=== PATIENT | female | born 1965 | race Caucasian/White ===

== ENCOUNTER 2021-10-08 09:44 | Outpatient (CLI) | payer BC ==
[2021-10-08 10:54] LABS: Bilirubin Neg (Negative); Blood, Urine 25 (Negative); Clarity Clear (Clear); Glucose, Urine (Dipstick) Normal (Negative); Ketone, Urine Negative (Negative); Leukocyte Negative (Negative); Nitrite Negative (Negative); Protein, Urine (Dipstick) Negative (Neg-Trace); Specific Gravity, Urine 1.015 (1.002-1.036); Urobilinogen Normal mg/dL (Less than 2)
[2021-10-08 11:06] LABS: Hemoglobin 13.9 g/dL (12.0-15.5); Mean Corpuscular HGB CONC 31.7 g/dL (32.0-36.0); Mean Corpuscular Hemoglobin 27.5 pg (27.0-33.0); Mean Corpuscular Volume 86.8 fl (81.6-98.3); Mean Platelet Volume 9.9 fl (7.4-10.4); Platelet Count 337 10x3/uL (150-450); RBC Distribution Width 13.7 % (11.5-14.5); Red Blood Cell (RBC) Count 5.06 10x6/uL (3.90-5.03); White Blood Cell (WBC) Count 6.2 10x3/uL (3.5-10.5)
[2021-10-08 11:17] LABS: BHCG - Serum Negative (NEGATIVE); Pregs Control Background? CLEAR/WHITE (CLR/WHITE); Pregs Control Bar Appear? YES (CONTROL BAR)
[2021-10-08 16:46] LABS: SARS-CoV-2 PCR by NAA Not Detected (NotDetected)
== END 2021-10-08 09:45 | disposition home or self-care (01) ==
LOC: CSHLAB 09:44
PROVIDERS: ATTEND Obstetrics & Gynecology
DX: Z01.812 Encounter for preprocedural laboratory examination (principal); Z20.822 Contact with and (suspected) exposure to COVID-19; N39.3 Stress incontinence (female) (male)
CPT/HCPCS: 81003; 84703; 85027; U0003; U0005

== ENCOUNTER 2021-10-11 05:39 | Observation (INO) | payer BC ==
[2021-10-09 14:10] VITALS: BMI 30.4
[2021-10-11] MEDS ORDERED: Fentanyl 250 MCG/5 ML VIAL ONE (06:41)
[2021-10-11] MEDS ORDERED: PROPOFOL 20 ML ONE (06:41)
[2021-10-11] MEDS ORDERED: Rocuronium Bromide 10 MG/ML (10ML VIAL) ONE (06:42)
[2021-10-11] MEDS ORDERED: Glycopyrrolate 0.2 MG/ML 5 ML SYRINGE ONE (06:42)
[2021-10-11] MEDS ORDERED: Ketorolac Tromethamine 30 MG/ML VIAL ONE (06:42)
[2021-10-11] MEDS ORDERED: Dexamethasone 20 MG/5 ML VIAL ONE (06:42)
[2021-10-11] MEDS ORDERED: Midazolam HCl 2 mg/2 ml Vial ONE (06:42)
[2021-10-11] MEDS ORDERED: Lidocaine 1% PF 5 ML VIAL ONE (06:42)
[2021-10-11] MEDS ORDERED: Ondansetron PF 4 MG/2 ML Vial ONE ×2 (06:42→13:33)
[2021-10-11] MEDS ORDERED: Bupivacaine PF 0.5% 30 ML VIAL ONE (06:43)
[2021-10-11] MEDS ORDERED: Bupivacaine 0.25% HCL 30 ML VIAL ONE (06:43)
[2021-10-11] MEDS ORDERED: EPINEPHrine 1 MG/ML AMP ONE (06:43)
[2021-10-11] MEDS ORDERED: Lidocaine 1% MPF 2 ML VIAL ONE (06:46)
[2021-10-11] MEDS ORDERED: ceFAZolin 2 GM/Dextrose 50 ML IVPB ONE (06:56)
[2021-10-11] MEDS ORDERED: Fentanyl 100 MCG/2 ML VIAL ONE (10:35)
[2021-10-11] MEDS ORDERED: HYDROcodone/Acetaminophen 10/325 mg Tablet ONE (12:12)
[2021-10-11] MEDS ORDERED: Morphine 2 MG/ML VIAL SLOW IVP PRN (13:57)
[2021-10-11] MEDS ORDERED: diphenhydrAMINE 25 MG CAP PO PRN (13:57)
[2021-10-11] MEDS ORDERED: Acetaminophen 325 MG TAB PO PRN (13:57)
[2021-10-11] MEDS ORDERED: Simethicone Chewable 80 MG TAB PO PRN (13:57)
[2021-10-11] MEDS ORDERED: HYDROcodone/Acetaminophen 10/325 mg Tablet PO PRN (13:57)
[2021-10-11] MEDS ORDERED: Ondansetron PF 4 MG/2 ML Vial IVP PRN (13:57)
[2021-10-11] MEDS ORDERED: Zolpidem Tartrate 5 MG TAB PO PRN (13:57)
[2021-10-11] MEDS: Ketorolac Tromethamine 30 MG/ML VIAL IVP SCH ×2 (15:35→21:14)
[2021-10-11] MEDS: Lactated Ringer's 1,000 ML IV SCH ×2 (15:44→21:34)
[2021-10-11] MEDS ORDERED: Docusate 100 MG CAP PO SCH (21:30)
[2021-10-12] MEDS: Ketorolac Tromethamine 30 MG/ML VIAL IVP SCH (03:12)
[2021-10-12] MEDS: Lactated Ringer's 1,000 ML IV SCH (03:51)
[2021-10-12 04:47] LABS: Hemoglobin 11.6 g/dL (12.0-15.5); Mean Corpuscular HGB CONC 33.1 g/dL (32.0-36.0); Mean Corpuscular Hemoglobin 27.7 pg (27.0-33.0); Mean Corpuscular Volume 83.5 fl (81.6-98.3); Mean Platelet Volume 9.6 fl (7.4-10.4); Platelet Count 288 10x3/uL (150-450); Red Blood Cell (RBC) Count 4.19 10x6/uL (3.90-5.03); White Blood Cell (WBC) Count 11.8 10x3/uL (3.5-10.5)
[2021-10-12] MEDS ORDERED: Ibuprofen 800 MG TAB PO SCH (09:00)
[2021-10-12] MEDS ORDERED: Docusate 100 MG CAP PO SCH (09:00)
[2021-10-12 10:06] VITALS: BP 99/61; TEMP 97.9
== END 2021-10-12 11:20 | disposition home or self-care (01) ==
LOC: CSHSDC 05:39 → CSHPP 14:39 → INTOOBSV 14:39
PROVIDERS: ADMIT Obstetrics & Gynecology; ATTEND Obstetrics & Gynecology
PROC: 0UT94ZZ Resection of Uterus, Percutaneous Endoscopic Approach (ICD-10-PCS; principal; 2021-10-11)
PROC: 0UT24ZZ Resection of Bilateral Ovaries, Percutaneous Endoscopic Approach (ICD-10-PCS; 2021-10-11)
PROC: 0UT74ZZ Resection of Bilateral Fallopian Tubes, Percutaneous Endoscopic Approach (ICD-10-PCS; 2021-10-11)
PROC: 8E0W8CZ Robotic Assisted Procedure of Trunk Region, Via Natural or Artificial Opening Endoscopic (ICD-10-PCS; 2021-10-11)
PROC: 0USG4ZZ Reposition Vagina, Percutaneous Endoscopic Approach (ICD-10-PCS; 2021-10-11)
PROC: 0TSD0ZZ Reposition Urethra, Open Approach (ICD-10-PCS; 2021-10-11)
DX: N80.0 Endometriosis of uterus (principal); N87.9 Dysplasia of cervix uteri, unspecified; N72 Inflammatory disease of cervix uteri; N83.292 Other ovarian cyst, left side; N83.291 Other ovarian cyst, right side; N39.3 Stress incontinence (female) (male); N81.10 Cystocele, unspecified; Z80.41 Family history of malignant neoplasm of ovary; N95.0 Postmenopausal bleeding
CPT/HCPCS: 85027; 88307; 96374; 96376; C1713; C1776; C1781; G0378; J0171; J0690; J1100; J1885; J2250; J2405; J2704; J3010; J7120; S0020